=== PATIENT | male | born 1955 | race Caucasian/White ===

== ENCOUNTER 2019-09-25 10:54 | Inpatient (IN) ==
[2019-09-25] MEDS ORDERED: hydrALAZINE 20 MG/ML VIAL IV ONE ×2 (10:59→13:38)
[2019-09-25] MEDS ORDERED: 0.9 % SODIUM CHLORIDE 1,000 ML IV ONE (11:39)
[2019-09-25] MEDS ORDERED: SPIRONOLACTONE 25 MG TABLET PO ONE (11:39)
[2019-09-25 11:45] LABS: Basophils # (Auto) 0.1 K/mcL (0.0-0.3); Basophils % (Auto) 0.7 % (0.0-2.0); Eosinophils # (Auto) 0.3 K/mcL (0.0-0.7); Eosinophils % (Auto) 3.2 % (0.0-7.0); Granulocytes % (Auto) 65.4 % (38.0-78.0); Hematocrit 46.7 % (41.0-55.0); Hemoglobin 15.6 g/dL (13.5-16.5); Lymphocytes # (Auto) 2.5 K/mcL (1.5-4.8); Lymphocytes % (Auto) 24.2 % (15.5-49.0); Mean Cell Volume 84.2 fL (80.0-100.0); Mean Corpuscular HGB Conc 33.4 g/dL (31.0-36.0); Mean Platelet Volume 8.7 fL (7.4-10.4); Monocytes # (Auto) 0.7 K/mcL (0.1-0.9); Monocytes % (Auto) 6.5 % (1.0-12.0); Platelet Count 222 K/mcL (140-440); RBC 5.55 M/mcL (4.50-5.90); Red Cell Distribution Width 14.4 % (11.5-14.5); WBC 10.1 K/mcL (4.5-11.0)
[2019-09-25 12:03] LABS: ALT/SGPT 23 U/l (0-40); AST/SGOT 20 U/l (0-37); Albumin 4.4 gm/dL (3.2-5.2); Albumin/Globulin Ratio 1.5 (1.0-2.3); Alkaline Phosphatase 80 U/L (39-117); Bilirubin,Total 0.4 mg/dL (0.0-1.0); Blood Urea Nitrogen 20 mg/dl (8-23); Calcium 9.7 mg/dl (8.6-10.4); Carbon Dioxide 26 mmol/L (22-30); Chloride 105 mmol/L (96-108); Globulin 2.9 gm/dL (2.2-3.7); Glomerular Filtration Rate 53; Glucose 106 mg/dL (70-105)
--- NOTE | 2019-09-25 12:16 | Emergency Department Note ---
General Adult HPI - General Chief complaint: Blood Pressure Problem Stated complaint: Elevated Blood Pressure Time Seen by Provider: 09/25/19 10:58 Source: patient Mode of arrival: ambulatory Limitations: no limitations - History of Present Illness HPI Narrative: 63-year-old with chronic hypertension his blood pressure has been out of control for the last 5 months. His primary care provider has tried several times to adjust his medicines without successfully getting his blood pressure controlled. Over the last couple weeks things have gotten worse and his blood pressure is now in the 200 systolic over 100 diastolic. He also complains of anxiety and taking his 's BuSpar because of his life situations which are happening. He is complaining of headaches with that elevated blood pressure. He is currently on 3 blood pressure medicines including metoprolol olmesartan and hydrochlorothiazide. He is able to urinate well - Related Data Previous Rx's Medication Instructions Recorded olopatadine 0.1 % eye drops 1 drp OPHTHALMIC BID PRN #5 ml 07/04/18 metoprolol succinate 50 mg 50 mg PO QDAY #90 tab 03/28/19 tablet,extended release 24 hr olmesartan 40 mg tablet 80 mg PO QDAY #180 tab 07/11/19 fluticasone propionate 50 2 spray INTRANASAL QDAY #15.8 g 07/16/19 mcg/actuation nasal spray,suspension Allergies Allergy/AdvReac Type Severity Reaction Status Date / Time No Known Drug Allergies Allergy Verified 07/11/19 09:59 Review of Systems All systems ED: reviewed and negative except as stated. Past Medical History - Past Medical History Attestation: Yes: The following information was validated with the patient. ON LICENSE OF [facility] Narrative: Family History (Last Reviewed 07/04/19 @ 08:43 by Francy Bolden PA-C) Father Coronary artery disease Hypertension Mother Myocardial Infarction Medical History (Last Reviewed 07/04/19 @ 08:43 by Francy Bolden PA-C) History of deviated nasal septum (Chronic) Testosterone deficiency (Chronic) Hypertension (Chronic) Hyperlipidemia (Chronic) Past Surgical History (Last Reviewed 07/04/19 @ 08:43 by Francy Bolden PA-C) History of appendectomy (Chronic) History of vasectomy (Chronic) Medical history: Reports: other (rrenal cell carcinoma) Surgical history ED: Reports: other (partial nephrectomy) - Social History smoking status: Former smoker Physical Exam No acute distress resting comfortably able to answer questions appropriately. However he is a little bit anxious and irritable. Normocephalic atraumatic. Conjunctive are mildly injected , sclerae white and icteric. No nasal discharge. Oropharynx is pink and moist. Posterior pharynx clear. Neck is supple without lymphadenopathy thyromegaly. Carotid bruit. Heart is regular rate and rhythm no murmur appreciated. Lungs clear to auscultation bilaterally without wheezes rales rhonchi or respiratory distress. Abdomen is soft nontender nondistended. No peritoneal signs or guarding. No pedal edema. +2 radial pulse. Alert oriented Limitations: no limitations Course Vital Signs Temperature 97.2 F 09/25/19 10:55 Pulse Rate 68 09/25/19 10:55 Respiratory Rate 16 09/25/19 10:55 Blood Pressure 202/100 09/25/19 10:55 Pulse Oximetry (%) 97 09/25/19 10:55 Temperature 97.2 F 09/25/19 10:55 Pulse Rate 79 09/25/19 15:16 Respiratory Rate 20 09/25/19 15:46 Blood Pressure 182/111 09/25/19 16:01 Pulse Oximetry (%) 92 09/25/19 15:16 Medical Decision Making - Lab Data Lab results reviewed: Yes I reviewed the patient's lab results. Result diagrams: 09/25/19 11:06 09/25/19 11:06 Lab Results 09/25/19 09/25/19 09/25/19 Range/Units 11:06 11:06 12:33 WBC 10.1 (4.5-11.0) K/mcL RBC 5.55 (4.50-5.90) M/mcL Hgb 15.6 (13.5-16.5) g/dL Hct 46.7 (41.0-55.0) % MCV 84.2 (80.0-100.0) fL MCH 28.1 (26.0-34.0) pg MCHC 33.4 (31.0-36.0) g/dL RDW 14.4 (11.5-14.5) % Plt Count 222 (140-440) K/mcL MPV 8.7 (7.4-10.4) fL Gran % 65.4 (38.0-78.0) % Lymph % (Auto) 24.2 (15.5-49.0) % Dent % (Auto) 6.5 (1.0-12.0) % Eos % (Auto) 3.2 (0.0-7.0) % Baso % (Auto) 0.7 (0.0-2.0) % Gran # 6.6 (1.8-8.0) K/mcL Lymph # (Auto) 2.5 (1.5-4.8) K/mcL Dent # (Auto) 0.7 (0.1-0.9) K/mcL Eos # (Auto) 0.3 (0.0-0.7) K/mcL Baso # (Auto) 0.1 (0.0-0.3) K/mcL Sodium 142 (133-145) mmol/L Potassium 4.2 (3.3-5.1) mmol/L Chloride 105 (96-108) mmol/L Carbon Dioxide 26 (22-30) mmol/L Anion Gap 11.0 (8-16) BUN 20 (8-23) mg/dl Creatinine 1.4 H (0.7-1.2) mg/dl GFR Calculation 53 Glucose 106 H (70-105) mg/dL Calcium 9.7 (8.6-10.4) mg/dl Total Bilirubin 0.4 (0.0-1.0) mg/dL AST 20 (0-37) U/l ALT 23 (0-40) U/l Alkaline Phosphatase 80 (39-117) U/L Total Protein 7.3 (5.9-8.4) gm/dL Albumin 4.4 (3.2-5.2) gm/dL Globulin 2.9 (2.2-3.7) gm/dL Albumin/Globulin Ratio 1.5 (1.0-2.3) Urine Color Colorless Urine Appearance Clear Urine pH 7.0 (5.0-9.0) Ur Specific [place] 1.008 (1.000-1.035) Urine Protein Neg (NEG) mg/dL Urine Glucose (UA) Negative (NEG) mg/dL Urine Ketones Neg (NEG) mg/dL Urine Occult Blood Neg (<0.03) mg/dL Urine Nitrate Neg (NEG) Urine Bilirubin Neg (NEG) mg/dL Urine Urobilinogen Neg (NEG) mg/dL Ur Leukocyte Esterase Neg (NEG) /uL Ur Culture Indicated? No - Radiology Data Radiology results reviewed: Yes I reviewed the patient's radiology results. CT scan of the head showed no acute change - EKG Data EKG #1 EKG attestation: Yes I reviewed and interpreted this EKG., Yes There are no EKG findings of acute coronary syndrome, Yes This EKG will be read by manager employment Disposition Pt seen by UTILITY MECHANIC/PA only: No Clinical Impression: Hypertensive urgency Summary: He is initially getting hydralazine with some decrease in his blood pressure but he was unable to urinate for us so we gave him some IV fluids. Added spironolactone as he is already on 3 blood pressure medicines at home and hydralazine was not completely working. Wrote for repeat dose of hydralazine as well as some Ativan as he became very anxious. Because of the headaches along with history of renal cell carcinoma ordered CT scan of the head. We will check an EKG as well EKG does not show any acute concerns neither did his CT scan of the head. Laboratory looked okay Headaches continued and we tried giving him some Tylenol. He vomited shortly thereafter. Dilaudid was ordered He continued to have severe anxiety and headaches in addition to elevated blood pressures. Even after the labetalol hydralazine and spironolactone blood pressure still remained in the 170s 180s over 100. I discussed the situation with hospitalist Dr. Mccartney. He will accept the patient for further care and evaluation in the hospital. We will start nicardipine drip. He was still nauseous so he is given Zofran Disposition: Home, Self-Care Condition: Fair Referrals: Michael De Oliveira MD, FAAFP [Primary Care Provider] -
[2019-09-25 13:30] LABS: Appearance,Urine CLEAR; Bilirubin,Urine NEG (NEG); Color,Urine COLORLESS; Culture Indicated,Urine NO; Glucose,Urine (UA) NEGATIVE (NEG); Ketones,Urine NEG (NEG); Leukocyte Esterase,Urine NEG /uL (NEG); Nitrate,Urine NEG (NEG); Protein,Urine NEG (NEG); Specific Gravity,Urine 1.008 (1.000-1.035); Urine Blood NEG mg/dL (<0.03); Urobilinogen,Urine NEG (NEG)
[2019-09-25] MEDS ORDERED: LORazepam 2 MG/ML VIAL IV ONE (13:30)
--- NOTE | 2019-09-25 14:37 | Cat Scan Report ---
CLINICAL INFORMATION: Headache and hypertension COMPARISON: None. TECHNIQUE: 2.5 mm helical slices were obtained in the skull base to vertex. Following reconstruction, axial reformatted images were reviewed at bone and parenchymal windows. The exam was performed using radiation dose optimization techniques including, but not limited to, automated exposure control, adjustment of the mA and/or kV according to patient size and use of iterative reconstruction technique. FINDINGS: The ventricles, sulci, fissures, and cisterns are symmetrically enlarged bowel mild age-related atrophy. No extra-axial fluid collections are identified. Minimal patchy chronic ischemic changes are seen in the deep cerebral white matter The cerebrum, brainstem and cerebellum are, otherwise, unremarkable. There is no evidence of hemorrhage, mass effect, or edema. Bone windows show no osseous abnormality. IMPRESSION: Mild atrophy and chronic ischemic changes in the the cerebral white matter. No acute disease Interpreted and Authenticated by: Tevin Robles 09/25/19
[2019-09-25] MEDS ORDERED: LABETALOL 5 MG/ML ML IV ONE (15:12)
[2019-09-25] MEDS ORDERED: ACETAMINOPHEN 325 MG TABLET PO ONE (16:07)
[2019-09-25] MEDS ORDERED: ONDANSETRON 4 MG/2 ML VIAL IV ONE (16:44)
[2019-09-25] MEDS ORDERED: niCARdipine 25 MG in 0.9 % SODIUM CHLORIDE 240 ML IV SCH ×2 (16:45→19:12)
[2019-09-25] MEDS ORDERED: HYDROmorphone 2 MG/ML VIAL IV SCH (16:45)
--- NOTE | 2019-09-25 17:36 | Internal Med History&Physical ---
Medical - H&P: HPI Patient information: Note initiated : 09/25/19 at 5:31 pm Service Date, if different from initiated Date: [] Patient: Kelly Schwartz a 63 y/o M admitted on for Elevated Blood Pressure. Chief Complaint: [] History of present illness: Mr. Schwartz is a 63 year old M Who presents with elevated blood pressure to [place] care and was sent over to the ER. Patient states the past couple weeks blood pressures been 190s to 200s. He has had headaches. He had nausea vomiting today no prior nausea vomiting. Does not admit to kelly confusion but may be a little foggy. Describes a headache as starting in the back of his head radiating around to the front He has been anxious as well and has been taking his 's BuSpar. Has been particularly stressed over the past month as well given certain family situations and the passing of longtime friends. Last medication change for blood pressure was in June when his olmesartan was increased. Since then patient has really checked his blood pressure. Is only checked it several times since then and it was 170s. Arrived with initial blood pressure of 202/100. Is given multiple doses of hydralazine as well as labetalol and some Ativan for anxiety. He had a couple low blood pressures in the 150s 160s but then back up into the 170s to 180s. CT brain was done which was unremarkable. No chest or back pain. EKG no acute findings. Auditory unremarkable. Review of Systems: Pertinent positives as above. Denies fever/chills/chest or abdominal p ain/cough/dyspnea/diarrhea. Remaining 10 point review of system reviewed negative Medical - H&P: PMH Medical history: Medical History (Last Reviewed 07/04/19 @ 08:43 by Francy Bolden PA-C) History of deviated nasal septum (Chronic) Testosterone deficiency (Chronic) Hypertension (Chronic) Hyperlipidemia (Chronic) Renal cell carcinoma Likely chronic kidney disease III Past Surgical History (Last Reviewed 07/04/19 @ 08:43 by Francy Bolden PA-C) History of appendectomy (Chronic) History of vasectomy (Chronic) Kidney surgery for cancer Family History (Last Reviewed 07/04/19 @ 08:43 by Francy Bolden PA-C) Father Coronary artery disease Hypertension Mother Myocardial Infarction Social History (Last Updated 08/22/19 @ 10:29 by Michael De Oliveira MD, FAAFP) Former smoker quit 2015 Drinks alcohol occasionally Lives at home with his Medical - H&P: Meds Home Medications Medication Instructions Recorded Confirmed Type olopatadine 0.1 % eye drops 1 drp OPHTHALMIC BID PRN #5 ml 07/04/18 09/25/19 Rx metoprolol succinate 50 mg 50 mg PO QDAY #90 tab 03/28/19 09/25/19 Rx tablet,extended release 24 hr olmesartan 40 mg tablet 80 mg PO QDAY #180 tab 07/11/19 09/25/19 Rx fluticasone propionate 50 2 spray INTRANASAL QDAY #15.8 g 07/16/19 09/25/19 Rx mcg/actuation nasal spray,suspension Allergies Allergy/AdvReac Type Severity Reaction Status Date / Time No Known Drug Allergies Allergy Verified 07/11/19 09:59 Medical - H&P: Exam - Constitutional Vitals: Temp Pulse Resp BP Pulse Ox 97.2 F 80 20 177/100 98 09/25/19 10:55 09/25/19 17:00 09/25/19 16:30 09/25/19 17:00 09/25/19 16:30 Exam: General: Alert, Awake, No acute Distress Eyes/N/T: EOMI, PEERL, DMM Head/Neck: neck supple, normocephalic atraumatic CV: RRR, No murmurs, normal s1/s2 Pulm: Clear b/l, no wheezing/rhonchi/rales Abd: soft, nontender, +BS x4 Ext: no clubbing/cyanosis/edema Neuro: Alert, no focal deficits, moves all extremities, CN 2-12 grossly intact, symmetrical strength b/l upper/lower, sensations intact b/l upper/lower Skin: warm/dry Medical - H&P: Reslt - Labs CBC & Chem 7: 09/25/19 11:06 09/25/19 11:06 Labs: Short CBC 09/25/19 Range/Units 11: WBC 10.1 (4.5-11.0) K/mcL Hgb 15.6 (13.5-16.5) g/dL Hct 46.7 (41.0-55.0) % Plt Count 222 (140-440) K/mcL BMP 09/25/19 11:06 Sodium 142 Potassium 4.2 Chloride 105 Carbon Dioxide 26 BUN 20 Creatinine 1.4 H Glucose 106 H Calcium 9.7 Liver Function 09/25/19 Range/Units 11:06 Total Bilirubin 0.4 (0.0-1.0) mg/dL AST 20 (0-37) U/l ALT 23 (0-40) U/l Alkaline Phosphatase 80 (39-117) U/L Albumin 4.4 (3.2-5.2) gm/dL Urine 09/25/19 Range/Units 12:33 Urine Color Colorless Urine Appearance Clear Urine pH 7.0 (5.0-9.0) Ur Specific [place] 1.008 (1.000-1.035) Urine Protein Neg (NEG) mg/dL Urine Glucose (UA) Negative (NEG) mg/dL - Impressions CT brain no acute pathology. Medical - H&P: A/P - Narrative A/P Narrative: A: *HTN Emergency/HTN Encephalopathy with BACH/N/V: -has been on Toprol 50 qd and Olmesartan 40 bid at home, has been elevated at h ome *CKD III (Cr appear baseline from April labs, 1.4): *h/o renal cell CA: *Anxiety: has been more stressed lately as well with family issues * P: -cardene gtt, bring down MAP 15% currently then bring down 25-30% for the evening. -since he is already a BB, we will switch to Coreg and titrate up; will likely use Lisinopril also vs norvasc, and chlorthalidone -prn ativan -monitor renal fxn - -ppx: SCD tonight, consider chemical once BP better controlled full code
[2019-09-25] MEDS ORDERED: ACETAMINOPHEN 325 MG TABLET PO PRN (19:12)
[2019-09-25] MEDS ORDERED: OLOPATADINE 0.1% OPHTH DROPS 5ML BOTTLE OU PRN (19:12)
[2019-09-25] MEDS: PROMETHAZINE 25 MG/ML VIAL IV PRN (20:42)
[2019-09-25] MEDS: 0.9 % SODIUM CHLORIDE 10 ML SYRINGE IV SCH (21:44)
[2019-09-25] MEDS: FAMOTIDINE/PF 20 MG/2 ML VIAL IV SCH (21:44)
[2019-09-25] MEDS: CARVEDILOL 12.5 MG TABLET PO SCH (21:45)
[2019-09-26] MEDS: 0.9 % SODIUM CHLORIDE 10 ML SYRINGE IV SCH ×3 (05:42→21:07)
[2019-09-26 06:09] LABS: Basophils # (Auto) 0 K/mcL (0.0-0.3); Basophils % (Auto) 0.1 % (0.0-2.0); Eosinophils # (Auto) 0.1 K/mcL (0.0-0.7); Eosinophils % (Auto) 0.4 % (0.0-7.0); Hematocrit 43.1 % (41.0-55.0); Hemoglobin 14.1 g/dL (13.5-16.5); Lymphocytes % (Auto) 16.8 % (15.5-49.0); Mean Cell Volume 85.2 fL (80.0-100.0); Mean Corpuscular HGB Conc 32.8 g/dL (31.0-36.0); Mean Platelet Volume 8.5 fL (7.4-10.4); Monocytes # (Auto) 0.8 K/mcL (0.1-0.9); Monocytes % (Auto) 6.7 % (1.0-12.0); Platelet Count 215 K/mcL (140-440); RBC 5.05 M/mcL (4.50-5.90); Red Cell Distribution Width 14.8 % (11.5-14.5); WBC 11.9 K/mcL (4.5-11.0)
[2019-09-26 06:28] LABS: ALT/SGPT 16 U/l (0-40); AST/SGOT 13 U/l (0-37); Albumin 3.9 gm/dL (3.2-5.2); Albumin/Globulin Ratio 1.6 (1.0-2.3); Alkaline Phosphatase 61 U/L (39-117); Bilirubin,Direct < 0.2 mg/dL (0.0-0.3); Bilirubin,Total 0.6 mg/dL (0.0-1.0); Blood Urea Nitrogen 18 mg/dl (8-23); Carbon Dioxide 26 mmol/L (22-30); Chloride 104 mmol/L (96-108); Globulin 2.4 gm/dL (2.2-3.7); Glomerular Filtration Rate 58; Glucose 108 mg/dL (70-105); Lactate Dehydrogenase 163 U/L (94-250); Phosphorous 3.1 mg/dL (2.7-4.5); Triglycerides 117 mg/dl (<150); Uric Acid 6.3 mg/dL (2.5-8.0)
[2019-09-26] MEDS: PROMETHAZINE 25 MG/ML VIAL IV PRN (07:06)
--- NOTE | 2019-09-26 07:26 | Internal Med Progress Note ---
Medical - PN: Subj Patient information: Note initiated : 09/26/19 at 7:24 am Service Date, if different from initiated Date: [] Patient: Kelly Schwartz a 63 y/o M admitted on 09/25/19 for Elevated Blood Pressure. Chief Complaint: [] Interval history: Mr. Schwartz is a 63 year old M Who presents with elevated blood pressure to [place] care and was sent over to the ER. Patient states the past couple weeks blood pressures been 190s to 200s. He has had headaches. He had nausea vomiting today no prior nausea vomiting. Does not admit to kelly confusion but may be a little foggy. Describes a headache as starting in the back of his head radiating around to the front He has been anxious as well and has been taking his 's BuSpar. Has been particularly stressed over the past month as well given certain family situations and the passing of longtime friends. Last medication change for blood pressure was in June when his olmesartan was increased. Since then patient has really checked his blood pressure. Is only checked it several times since then and it was 170s. Arrived with initial blood pressure of 202/100. Is given multiple doses of hydralazine as well as labetalol and some Ativan for anxiety. He had a couple low blood pressures in the 150s 160s but then back up into the 170s to 180s. CT brain was done which was unremarkable. No chest or back pain. EKG no acute findings. Auditory unremarkable. 09/26 Had a little bit of a headache this morning. Some nausea. But overall feeling better. Cardene drip off it 11 PM last night. Started Coreg last night. Blood pressures improving appropriately, trying not to bring down to rapidly. Evaluate blood pressure later in the day and may add lisinopril as originally planned. Patient says he is he is to see a psychiatrist when he was younger felt to help. He feels he could benefit from seeing a psychiatrist at this time. Review of Systems: denies fever/chills/vomiting/chest or abdominal pain/cough/dyspnea/diarrhea. Otherwise see above. - Constitutional Vitals: Vital Signs Temp Pulse Resp BP Pulse Ox 98.2 F 67 17 136/89 97 09/26/19 04:01 09/26/19 02:01 09/26/19 05:21 09/26/19 05:01 09/26/19 02:01 Period Temp Pulse Resp BP Sys/Whitmore Pulse Ox Last 24 Hr 97.2 F-98.2 F 62-87 9-24 108-220/64-120 92-99 Intake and Output 09/25/19 09/26/19 09/26/19 21:59 05:59 13:59 Intake Total 121 100 Output Total 1725 525 Balance -1604 -425 Weight 95.527 kg Intake & Output: Intake & Output 09/25/19 09/26/19 09/26/19 21:59 05:59 13:59 Intake Total 121 100 Output Total 1725 525 Balance -1604 -425 Weight 95.527 kg Intake: IV 121 100 Cardene 25 MG In Sodium 121 100 Chloride 0.9% 240 ml @ 5 MG/HR 50 mls/hr IV ONCE ON LICENSE OF [facility] Rx#: [id number] Output: Void Amount 1723 525 Other: Urine Appearance Clear Clear Urine Color Bright Yellow Dark Yellow Exam: General: Alert, Awake, No acute Distress Eyes/N/T: EOMI, Head/Neck: neck supple, CV: RRR, No murmurs, Pulm: Clear b/l, no wheezing/rhonchi/rales Abd: soft, nontender, +BS x4 Ext: no clubbing/cyanosis/edema Neuro: Alert, no focal deficits, moves all extremities, Skin: warm/dry Medical - PN: Obj Da - Labs CBC & Chem 7: 09/26/19 04:05 09/26/19 04:05 Labs: Abnormal Lab Results 09/26/19 09/26/19 09/25/19 04:05 04:05 11:06 WBC 11.9 H RDW 14.8 H Gran # 9.0 H Creatinine 1.3 H 1.4 H Glucose 108 H 106 H Meds: Medications Acetaminophen (Tylenol) 650 mg PO Q4-6HP PRN; Protocol PRN Reason: Per Pain Protocol/Fever > 101 Last Admin: 09/25/19 21:44 Dose: 650 mg Documented by: Carvedilol (Coreg) 12.5 mg PO BIDCC ON LICENSE OF [facility] Last Admin: 09/25/19 21:45 Dose: 12.5 mg Documented by: Famotidine (Pepcid) 20 mg IV HS ON LICENSE OF [facility] Last Admin: 09/25/19 21:44 Dose: 20 mg Documented by: Nicardipine HCl 25 mg/ Sodium (Chloride) 250 mls @ 50 mls/hr IV ONCE DILSHAD; Protocol Last Admin: 09/25/19 22:50 Dose: Not Given Documented by: Lorazepam (Ativan) 0.5 mg IV Q6HP PRN PRN Reason: ANXIETY/SEDATION Olopatadine HCl (Patanol 0.1% Ophth Drops) 1 gtt OU BIDP PRN PRN Reason: allergic symptoms Promethazine HCl (Phenergan) 12.5 mg IV Q4-6HP PRN; Protocol PRN Reason: Nausea And Vomiting Last Admin: 09/26/19 07:06 Dose: 12.5 mg Documented by: Sodium Chloride (Saline Flush) 10 ml IV Q8 DILSHAD Last Admin: 09/26/19 05:42 Dose: 10 ml Documented by: Medical - PN: A/P - Time Spent With Patient Total time spent is greater than 50% in coordination of care (as documented) at patient's floor/unit and/or counseling patient: - Narrative A/P Narrative: A: *HTN Emergency/HTN Encephalopathy with BACH/N/V: resolved -has been on Toprol 50 qd and Olmesartan 40 bid at home, has been elevated at h ome *CKD III (Cr appear baseline from April, 1.4): stable *h/o renal cell CA: *Anxiety: has been more stressed lately as well with family issues * P: -cardene gtt off -cont titration of BP meds, -since he is already a BB, we switched to Coreg and will titrate; will likely use Lisinopril also vs norvasc, and chlorthalidone if needed -prn ativan -monitor renal fxn -f/u with psychiatry outpt -ppx: lovenox full code Medical - PN: Qual - VTE Deep Vein Thrombosis/Pulmonary Embolism Present on Admission: No
[2019-09-26] MEDS: CARVEDILOL 12.5 MG TABLET PO SCH ×2 (07:35→17:25)
[2019-09-26] MEDS ORDERED: niCARdipine 25 MG in 0.9 % SODIUM CHLORIDE 240 ML IV PRN (10:15)
[2019-09-26] MEDS: LORazepam 2 MG/ML VIAL IV PRN ×3 (17:49→17:56)
[2019-09-26] MEDS: FAMOTIDINE/PF 20 MG/2 ML VIAL IV SCH (21:07)
[2019-09-27] MEDS: 0.9 % SODIUM CHLORIDE 10 ML SYRINGE IV SCH ×5 (05:35→20:49)
[2019-09-27] MEDS: CARVEDILOL 12.5 MG TABLET PO SCH ×2 (07:41→17:21)
[2019-09-27] MEDS ORDERED: hydrALAZINE 20 MG/ML VIAL IV PRN ×2 (07:50→13:57)
--- NOTE | 2019-09-27 07:52 | Internal Med Progress Note ---
Medical - PN: Subj Patient information: Note initiated : 09/27/19 at 7:48 am Service Date, if different from initiated Date: [] Patient: Kelly Schwartz a 63 y/o M admitted on 09/25/19 for Elevated Blood Pressure. Chief Complaint: [] Interval history: Mr. Schwartz is a 63 year old M Who presents with elevated blood pressure to [place] care and was sent over to the ER. Patient states the past couple weeks blood pressures been 190s to 200s. He has had headaches. He had nausea vomiting today no prior nausea vomiting. Does not admit to kelly confusion but may be a little foggy. Describes a headache as starting in the back of his head radiating around to the front He has been anxious as well and has been taking his 's BuSpar. Has been particularly stressed over the past month as well given certain family situations and the passing of longtime friends. Last medication change for blood pressure was in June when his olmesartan was increased. Since then patient has really checked his blood pressure. Is only checked it several times since then and it was 170s. Arrived with initial blood pressure of 202/100. Is given multiple doses of hydralazine as well as labetalol and some Ativan for anxiety. He had a couple low blood pressures in the 150s 160s but then back up into the 170s to 180s. CT brain was done which was unremarkable. No chest or back pain. EKG no acute findings. Auditory unremarkable. 09/26 Had a little bit of a headache this morning. Some nausea. But overall feeling better. Cardene drip off it 11 PM last night. Started Coreg last night. Blood pressures improving appropriately, trying not to bring down to rapidly. Evaluate blood pressure later in the day and may add lisinopril as originally planned. Patient says he is he is to see a psychiatrist when he was younger felt to help. He feels he could benefit from seeing a psychiatrist at this time. 09/27 Patient is doing relatively well but spiked this morning 190. Adding lisinopril this morning to Coreg. Will need additional titration but if reasonable next 24 hours plan for discharge in the morning. Says his headache is essentially gone away. No nausea vomiting. Feeling better. Talk to him about decreasing his salt intake /diet / exercise. Review of Systems: denies fever/chills/vomiting/chest or abdominal pain/cough/dyspnea/diarrhea. Otherwise see above. - Constitutional Vitals: Vital Signs Temp Pulse Resp BP Pulse Ox 98.0 F 72 18 175/104 98 09/26/19 20:01 09/26/19 17:03 09/27/19 07:26 09/27/19 07:01 09/27/19 04:01 Period Temp Pulse Resp BP Sys/[place] Pulse Ox Last 24 Hr 98.0 F-99.1 F 64-80 9-28 118-176/70-107 95-98 Intake and Output 09/26/19 09/27/19 09/27/19 21:59 05:59 13:59 Intake Total 340 240 120 Output Total 750 350 150 Balance -410 -110 -30 Weight 95.254 kg Intake & Output: Intake & Output 09/26/19 09/27/19 09/27/19 21:59 05:59 13:59 Intake Total 340 240 120 Output Total 750 350 150 Balance -410 -110 -30 Weight 95.254 kg Intake: Oral 340 240 120 Output: Void Amount 750 350 150 Other: Urine Appearance Sediment Urine Color Bright Yellow Urine Odor Normal Exam: General: Alert, Awake, No acute Distress Eyes/N/T: EOMI, Head/Neck: neck supple, CV: RRR, No murmurs, Pulm: Clear b/l, no wheezing/rhonchi/rales Abd: soft, nontender, +BS x4 Ext: no clubbing/cyanosis/edema Neuro: Alert, no focal deficits, moves all extremities, Skin: warm/dry Medical - PN: Obj Da - Labs CBC & Chem 7: 09/26/19 04:05 09/26/19 04:05 Labs: Abnormal Lab Results 09/26/19 09/26/19 09/25/19 04:05 04:05 11:06 WBC 11.9 H RDW 14.8 H Gran # 9.0 H Creatinine 1.3 H 1.4 H Glucose 108 H 106 H Meds: Medications Acetaminophen (Tylenol) 650 mg PO Q4-6HP PRN; Protocol PRN Reason: Per Pain Protocol/Fever > 101 Last Admin: 09/25/19 21:44 Dose: 650 mg Documented by: Carvedilol (Coreg) 12.5 mg PO BIDCC DILSHAD Last Admin: 09/27/19 07:41 Dose: 12.5 mg Documented by: Enoxaparin Sodium (Lovenox) 40 mg SQ DAILY DILSHAD Famotidine (Pepcid) 20 mg IV HS DILSHAD Last Admin: 09/26/19 21:07 Dose: 20 mg Documented by: Nicardipine HCl 25 mg/ Sodium (Chloride) 250 mls @ 50 mls/hr IV Q12HP PRN; Protocol PRN Reason: Hypertension Lorazepam (Ativan) 0.5 mg IV Q6HP PRN PRN Reason: ANXIETY/SEDATION Last Admin: 09/26/19 17:56 Dose: 0.5 mg Documented by: Olopatadine HCl (Patanol 0.1% Ophth Drops) 1 gtt OU BIDP PRN PRN Reason: allergic symptoms Promethazine HCl (Phenergan) 12.5 mg IV Q4-6HP PRN; Protocol PRN Reason: Nausea And Vomiting Last Admin: 09/26/19 07:06 Dose: 12.5 mg Documented by: Sodium Chloride (Saline Flush) 10 ml IV Q8 DILSHAD Last Admin: 09/27/19 05:35 Dose: 10 ml Documented by: Medical - PN: A/P - Time Spent With Patient Total time spent is greater than 50% in coordination of care (as documented) at patient's floor/unit and/or counseling patient: - Narrative A/P Narrative: A: *HTN Emergency/HTN Encephalopathy with BACH/N/V: resolved -has been on Toprol 50 qd and Olmesartan 40 bid at home, has been elevated at home -better controlled on coreg alone, but still needs improvement *CKD III (Cr appear baseline from April, 1.4): stable *h/o renal cell CA: *Anxiety: has been more stressed lately as well with family issues -improved on prn ativan * P: -cont titration of PO BP meds, -since he is already a BB, we switched to Coreg and will titrate; start Lisinopril vs norvasc, and chlorthalidone if needed -prn ativan, march d/c with a prn benzodiazepine -monitor renal fxn -f/u with psychiatry outpt -low salt diet, other dietary/excersize/life style changes -ppx: lovenox full code Medical - PN: Qual - VTE Deep Vein Thrombosis/Pulmonary Embolism Present on Admission: No
[2019-09-27] MEDS ORDERED: ENOXAPARIN 40 MG/0.4 ML SYRINGE SQ SCH (09:00)
[2019-09-27] MEDS ORDERED: LISINOPRIL 20 MG TABLET PO SCH (09:00)
[2019-09-27] MEDS: LORazepam 2 MG/ML VIAL IV PRN ×2 (09:37→15:45)
--- NOTE | 2019-09-27 12:36 | Discharge Summary ---
Medical - DS: Prov Patient information: Note initiated : 09/27/19 at 12:34 pm Service Date, if different from initiated Date: [] Patient: Kelly Schwartz 63 y/o M admitted on 09/25/19 for Elevated Blood Pressure. Chief Complaint: [] Date of admission: 09/25/19 18:43 Discharge date: 09/28/19 Primary care physician: Michael De Oliveira M.D., F.A.A.F.P. Consults: 09/25/19 Consult to Physician [CONS] Stat Comment: Consulting Provider: Ramo Mccartney Reason For Exam: Physician to Consult Medical - DS: Meds - Discharge Medications Prescriptions: LORazepam [Ativan] 0.5 mg PO TIDP PRN #20 tab PRN Reason: Anxiety Carvedilol [Coreg] 18.75 mg PO BIDCC #90 tablet Chlorthalidone [Hygroton] 12.5 mg PO DAILY #30 tablet Lisinopril [Zestril] 20 mg PO DAILY #30 tablet Active and Home Medications: Home Medications olopatadine 0.1 % eye drops 1 drp OPHTHALMIC BID PRN #5 ml 07/04/18 [Rx Confirmed 09/26/19 Last Taken Unknown] metoprolol succinate 50 mg tablet,extended release 24 hr 50 mg PO QDAY #90 tab 03/28/19 [Rx Confirmed 09/26/19 Last Taken Unknown] olmesartan 40 mg tablet 80 mg PO QDAY #180 tab 07/11/19 [Rx Confirmed 09/26/19 Last Taken Unknown] fluticasone propionate 50 mcg/actuation nasal spray,suspension 2 spray INTRANASAL QDAY #15.8 g 07/16/19 [Rx Confirmed 09/26/19 Last Taken Unknown] Home Medications olopatadine 0.1 % eye drops 1 drp OPHTHALMIC BID PRN #5 ml 07/04/18 [Rx Confirmed 09/26/19 Last Taken Unknown] fluticasone propionate 50 mcg/actuation nasal spray,suspension 2 spray INTRANASAL QDAY #15.8 g 07/16/19 [Rx Confirmed 09/26/19 Last Taken Unknown] LORazepam [Ativan] 0.5 mg PO TIDP PRN #20 tab 09/27/19 [Rx Last Taken Unknown] Carvedilol [Coreg] 18.75 mg PO BIDCC #90 tablet 09/28/19 [Rx Last Taken Unknown] Chlorthalidone [Hygroton] 12.5 mg PO DAILY #30 tablet 09/28/19 [Rx Last Taken Unknown] Lisinopril [Zestril] 20 mg PO DAILY #30 tablet 09/28/19 [Rx Last Taken Unknown] Medical - DS: Hosp Hospital Course: Mr. Schwartz is a 63 year old M Who presents with elevated blood pressure to [facility] and was sent over to the ER. Patient states the past couple weeks blood pressures been 190s to 200s. He has had headaches. He had nausea vomiting today no prior nausea vomiting. Does not admit to kelly confusion but may be a little foggy. Describes a headache as starting in the back of his head radiating around to the front He has been anxious as well and has been taking his 's BuSpar. Has been particularly stressed over the past month as well given certain family situations and the passing of longtime friends. Last medication change for blood pressure was in June when his olmesartan was increased. Since then patient has really checked his blood pressure. Is only checked it several times since then and it was 170s. Arrived with initial blood pressure of 202/100. Is given multiple doses of hydralazine as well as labetalol and some Ativan for anxiety. He had a couple low blood pressures in the 150s 160s but then back up into the 170s to 180s. CT brain was done which was unremarkable. No chest or back pain. EKG no acute findings. Auditory unremarkable. 09/26 Had a little bit of a headache this morning. Some nausea. But overall feeling better. Cardene drip off it 11 PM last night. Started Coreg last night. Blood pressures improving appropriately, trying not to bring down to rapidly. Evaluate blood pressure later in the day and may add lisinopril as originally planned. Patient says he is he is to see a psychiatrist when he was younger felt to help. He feels he could benefit from seeing a psychiatrist at this time. 09/27 Patient is doing relatively well but spiked this morning 190. Adding lisinopril this morning to Coreg. Will need additional titration but if reasonable next 24 hours plan for discharge in the morning. Says his headache is essentially gone away. No nausea vomiting. Feeling better. Talked to him about decreasing his salt intake /diet / exercise. 09/28 Pressures bit better control of last 24 hours. Had increase Coreg yesterday and added chlorthalidone. Anxiety medication helping out as well. Will need to further adjustment per PCP. sTable for discharge. Follow-up with psychiatry as well A: *HTN Emergency/HTN Encephalopathy with BACH/N/V: resolved. Anxiety seems to be contributing -has been on Toprol 50 qd and Olmesartan 40 bid at home, has been elevated at home -better controlled on coreg alone, but still needs improvement *CKD III (Cr appear baseline from April, 1.4): stable *h/o renal cell CA: *Anxiety: has been more stressed lately as well with family issues -improved on prn ativan * Discharge diagnosis: Hypertensive emergency chronic kidney disease anxiety Secondary discharge diagnosis: Renal cell carcinoma - Time Spent with Patient Total time spent providing and/or coordinating discharge services: Greater than 30 minutes Medical - DS: Exam - Constitutional Vitals: Vital Signs Temp Pulse Resp BP Pulse Ox 09/27/19 12:02 81 97 09/27/19 12:01 99.1 F H 86 20 175/112 96 09/27/19 11:01 80 24 H 165/98 91 09/27/19 10:41 80 14 94 09/27/19 10:13 83 19 166/94 96 09/27/19 10:01 79 17 146/94 95 09/27/19 09:52 18 145/92 09/27/19 09:02 83 18 158/86 96 09/27/19 08:47 80 12 171/90 96 09/27/19 08:36 14 09/27/19 08:35 98.6 F 12 152/95 09/27/19 08:15 72 16 198/112 99 09/27/19 08:12 65 12 190/107 95 09/27/19 08:01 63 12 182/118 96 09/27/19 07:26 18 09/27/19 07:01 175/104 09/27/19 06:01 155/98 09/27/19 05:57 11 L 155/98 09/27/19 05:01 22 152/98 09/27/19 04:01 18 137/97 98 09/27/19 03:01 18 118/70 09/27/19 02:24 11 L 09/27/19 02:01 17 124/70 09/27/19 02:00 97 11/08/19 01:01 16 133/80 09/27/19 00:14 15 09/27/19 00:01 15 122/78 09/26/19 23:01 17 144/79 09/26/19 22:01 9 L 160/97 09/26/19 21:01 16 146/92 09/26/19 20:01 98.0 F 17 149/87 96 09/26/19 20:00 98 09/26/19 19:01 11 L 167/96 09/26/19 18:18 15 09/26/19 18:12 13 162/96 09/26/19 17:03 72 15 176/107 98 09/26/19 17:01 73 13 167/104 96 09/26/19 16:18 64 17 96 09/26/19 16:01 99.1 F H 78 17 157/93 98 09/26/19 15:56 67 18 98 09/26/19 15:01 78 14 150/92 97 09/26/19 14:01 80 19 150/92 97 09/26/19 14:00 97 09/26/19 13:01 18 149/84 95 Intake and Output 09/26/19 09/27/19 09/27/19 21:59 05:59 13:59 Intake Total 340 240 360 Output Total 750 350 425 Balance -410 -110 -65 Intake: Oral 340 240 360 Output: Void Amount 750 350 425 Other: Meal Breakfast Percent of Meal Consumed 75% Feeding Ability Independent Urine Appearance Clear Urine Color Bright Yellow Urine Odor Normal Weight 95.254 kg Medical - DS: A/P - Patient/Caregiver Discharge Instructions Activity: increase activity as tolerated Diet: Low Sodium (2gm) Additional Instructions: Likely needs further titration of blood pressure medications per PCP. Referral to see psychiatrist in 5 to 10 days Prescriptions: LORazepam [Ativan] 0.5 mg PO TIDP PRN #20 tab PRN Reason: Anxiety - Follow up Plan Follow up with: Tevin Leblanc DO [Physician] - 10/07/19 3:00 pm (Please check in at 2:45 pm) Michael De Oliveira MD, FAAFP [Primary Care Provider] - Manolo Baum MD [Physician] - (A referral has been sent, they will contact you to schedule an appointment.) Disposition: Home, Self-Care Care Plan Goals: This discharge packet is provided to you to help keep you informed about your c are. We want to ensure you get everything you need when you go home. You will also be receiving a call from us in a few days to follow up with you and see how you are doing since your discharge. This gives us a chance to listen to any concerns you maybe experiencing since you were discharged or any additional needs you may have, as well as providing us feedback on your care experience. We strive to always provide excellent care and thank you for your feedback and for choosing [facility]. Prognosis: Fair Rehab Potential: Fair Overall status at discharge: patient is progressing back to baseline Medical - DS: Qual - VTE Deep Vein Thrombosis/Pulmonary Embolism Present on Admission: No
[2019-09-27] MEDS ORDERED: CHLORTHALIDONE 25 MG TABLET PO ONE (13:21)
[2019-09-27] MEDS ORDERED: ACETAMINOPHEN 325 MG TABLET PO PRN (13:57)
[2019-09-27] MEDS ORDERED: OLOPATADINE 0.1% OPHTH DROPS 5ML BOTTLE OU PRN (13:57)
[2019-09-27] MEDS ORDERED: PROMETHAZINE 25 MG/ML VIAL IV PRN (13:57)
[2019-09-27] MEDS ORDERED: CARVEDILOL 12.5 MG TABLET PO SCH (17:30)
[2019-09-27] MEDS ORDERED: FAMOTIDINE/PF 20 MG/2 ML VIAL IV SCH (21:00)
[2019-09-28] MEDS: LORazepam 2 MG/ML VIAL IV PRN ×2 (05:34→11:33)
[2019-09-28] MEDS: 0.9 % SODIUM CHLORIDE 10 ML SYRINGE IV SCH (05:34)
[2019-09-28] MEDS ORDERED: LISINOPRIL 20 MG TABLET PO SCH (09:00)
[2019-09-28] MEDS ORDERED: ENOXAPARIN 40 MG/0.4 ML SYRINGE SQ SCH (09:00)
[2019-09-28] MEDS: CARVEDILOL 12.5 MG TABLET PO SCH (09:02)
[2019-09-28] MEDS ORDERED: CHLORTHALIDONE 25 MG TABLET PO ONE (13:05)
== END 2019-09-28 14:00 | disposition home or self-care (01) | DRG 305 ==
LOC: ED 10:54 → ICU 18:43
PROVIDERS: ADMIT Internal Medicine; ATTEND Internal Medicine